=== PATIENT | female | born 1990 | race Caucasian/White ===

== ENCOUNTER 2016-10-10 14:57 | Emergency (ER) | payer OTHER ==
[~2016-10-10] VITALS: Ht 167.6 cm; Wt 78.9 kg
[2016-10-10 15:00] VITALS: Ht 167.6 cm; Wt 78.9 kg
[2016-10-10 15:48] LABS: BASO % 0.5 %; BASO ABS # 0.03 K/uL (0-0.2); COMPLETE YES; EOS % 3.6 %; HEMATOCRIT 42.5 % (37-47); IG% 0.2 %; LYMPH % 30.9 %; LYMPH ABS # 1.91 K/uL (1.2-3.4); MEAN CELL VOLUME 89.3 fL (80-100); MEAN CORPUSCULAR HEMOGLOBIN 31.3 pg (25-34); MEAN CORPUSCULAR HGB CONC 35.1 g/dl (32-36); MONO % 7.3 %; NEUT % 57.5 %; PLATELET COUNT 190 K/uL (130-400); RED BLOOD COUNT 4.76 M/uL (4.2-5.4); WHITE BLOOD COUNT 6.18 K/uL (4.8-10.8)
[2016-10-10 16:05] LABS: BUN/CREATININE RATIO 9.4 (10-20); CALCIUM 8.7 mg/dl (8.5-10.1); CREATININE 0.77 mg/dl (0.60-1.20); POTASSIUM 3.8 mmol/L (3.5-5.1)
[2016-10-10 16:16] LABS: ALB/GLOB RATIO 1.1 (0.9-2); THYROID STIMULATING HORMONE 2.22 uIu/ml (0.300-4.500)
--- NOTE | 2016-10-10 17:10 | EMERGENCY ROOM VISIT NOTE ---
History First contact with patient: 15:04 Chief Complaint: THROAT PAIN/INJURY Stated Complaint: FEELS LIKE SOMETHING IS STUCK IN THROAT History of Present Illness The patient is a 26 year old female who presents to the Emergency Room with complaints of a sensation of something stuck in her throat. The patient reports that for the past 2 months, she feels like there is something stuck in her throat. She states that she feels it when she is swallowing, talking and at rest. She states it feels like a pressure sensation in her throat. She reports that initially, the sensation would go away occasionally when she cracked her neck, but this no longer works. The symptoms are constant and has worsened over the past week. She is able to breathe and swallow without difficulty. The patient does report she has occasional heartburn and also notices some postnasal drip at times. She denies any fevers, neck swelling, nausea, vomiting or abdominal pain. Review of Systems A complete 10-point Review of Systems was discussed with the patient, with pertinent positives and negatives listed in the History of Present Illness. All remaining Review of Systems questions can be considered negative unless otherwise specified. Past Medical/Surgical History Medical Problems: (1) Normal labor (2) Urinary Frequency Family History FH: cancer Social History Smoking Status: Current Some Day Smoker Housing Status: lives with family Current/Historical Medications No Active Prescriptions or Reported Meds Allergies Coded Allergies: No Known Allergies (Unverified , 01/19/15) Physical Exam Vital Signs Date Time Temp Pulse Resp B/P Pulse Ox O2 Delivery O2 Flow Rate FiO2 10/10/16 17:18 36.2 87 20 117/71 99 10/10/16 15:00 36.2 87 20 117/71 99 Room Air Physical Exam VITALS: Vitals are noted on the nurse's note and reviewed by myself. Vital signs stable. GENERAL: This is a 26-year-old female, in no acute distress, nondiaphoretic, well-developed well-nourished. SKIN: The skin was without rashes. HEAD: Normocephalic atraumatic. EARS: External auditory canals clear, tympanic membranes pearly sanders without erythema or effusion bilaterally. EYES: Pupils equal round and reactive to light and accommodation. MOUTH: Mucous membranes moist. Tonsils are not enlarged. Pharynx without erythema or exudate. Uvula midline. Airway patent. NECK: Supple without nuchal rigidity. No lymphadenopathy. No swelling of the neck. HEART: Regular rate and rhythm without murmurs gallops or rubs. LUNGS: Clear to auscultation bilaterally without wheezes, rales or rhonchi. NEURO: Patient was alert and oriented to person place and time. Medical Decision & Procedures Laboratory Results 10/10/16 15:40 Red Blood Count 4.76, Mean Corpuscular Volume 89.3, Mean Corpuscular Hemoglobin 31.3, Mean Corpuscular Hemoglobin Concent 35.1, Mean Platelet Volume 10.0, Neutrophils (%) (Auto) 57.5, Lymphocytes (%) (Auto) 30.9, Monocytes (%) (Auto) 7.3, Eosinophils (%) (Auto) 3.6, Basophils (%) (Auto) 0.5, Neutrophils # (Auto) 3.56, Lymphocytes # (Auto) 1.91, Monocytes # (Auto) 0.45, Eosinophils # (Auto) 0.22, Basophils # (Auto) 0.03 10/10/16 15:40 Test 10/10/16 15:40 White Blood Count 6.18 K/uL (4.8-10.8) Red Blood Count 4.76 M/uL (4.2-5.4) Hemoglobin 14.9 g/dL (12.0-16.0) Hematocrit 42.5 % (37-47) Mean Corpuscular Volume 89.3 fL (80-100) Mean Corpuscular Hemoglobin 31.3 pg (25-34) Mean Corpuscular Hemoglobin Concent 35.1 g/dl (32-36) Platelet Count 190 K/uL (130-400) Mean Platelet Volume 10.0 fL (7.4-10.4) Neutrophils (%) (Auto) 57.5 % Lymphocytes (%) (Auto) 30.9 % Monocytes (%) (Auto) 7.3 % Eosinophils (%) (Auto) 3.6 % Basophils (%) (Auto) 0.5 % Neutrophils # (Auto) 3.56 K/uL (1.4-6.5) Lymphocytes # (Auto) 1.91 K/uL (1.2-3.4) Monocytes # (Auto) 0.45 K/uL (0.11-0.59) Eosinophils # (Auto) 0.22 K/uL (0-0.5) Basophils # (Auto) 0.03 K/uL (0-0.2) RDW Standard Deviation 38.7 fL (36.4-46.3) RDW Coefficient of Variation 12.0 % (11.5-14.5) Immature Granulocyte % (Auto) 0.2 % Immature Granulocyte # (Auto) 0.01 K/uL (0.00-0.02) Anion Gap 9.0 mmol/L (3-11) Est Creatinine Clear Calc Drug Dose 116.3 ml/min Estimated GFR () 122.6 Estimated GFR (Non- 105.8 BUN/Creatinine Ratio 9.4 (10-20) Calcium Level 8.7 mg/dl (8.5-10.1) Total Bilirubin 1.1 mg/dl (0.2-1) Aspartate Amino Transf (AST/SGOT) 12 U/L (15-37) Alanine Aminotransferase (ALT/SGPT) 18 U/L (12-78) Alkaline Phosphatase 71 U/L (45-117) Total Protein 8.1 gm/dl (6.4-8.2) Albumin 4.2 gm/dl (3.4-5.0) Globulin 3.9 gm/dl (2.5-4.0) Albumin/Globulin Ratio 1.1 (0.9-2) Thyroid Stimulating Hormone (TSH) 2.220 uIu/ml (0.300-4.500) Free Thyroxine 1.02 ng/dl (0.80-1.60) Free Triiodothyronine 2.68 pg/ml (2.30-4.20) Medical Decision Differential diagnosis includes GERD, postnasal drip, anxiety, food bolus, among others. The patient was evaluated as above. Labs were drawn and IV access was obtained. Labs revealed no leukocytosis, anemia or concerning electrolyte abnormalities. Thyroid studies were obtained and were unremarkable. The patient has no significant findings on physical exam. I am unsure the cause of her symptoms. She does admit to occasional heartburn and postnasal drip. She was encouraged to take Prilosec. She was given information for ENT follow-up. She will return with worsening symptoms. The patient's case was reviewed with Dr. Bragg, ED attending physician, who agreed with my assessment and treatment plan. The patient verbalized understanding of my assessment and treatment plan and was discharged home in good condition. Impression Primary Impression: Globus sensation Departure Information Dispostion Home / Self-Care Condition GOOD Prescriptions No Active Prescriptions or Reported Meds Referrals No Doctor, Assigned (PCP) Nawaf Sepulveda M.D. Patient Instructions My [facility] Additional Instructions Labs and thyroid studies today were OK. You may start Prilosec [id number] for acid reflux. You may also take an antihistamine such as Claritin, Zyrtec or Rashmi daily for postnasal drip. Call Dr. Sepulveda's office to schedule a follow-up appointment for further evaluation and testing. Return to the emergency department with any worsening symptoms, difficulty breathing, or difficulty swallowing.
[2016-10-10 17:18] VITALS: BP 117/71; PULSE 87; TEMP 36.2; O2SAT 99
== END 2016-10-10 17:19 | disposition home or self-care (01) ==
LOC: C.EDB 14:58 → C.EDC 17:19
DX: R09.89 Other specified symptoms and signs involving the circulatory and respiratory systems (principal); F17.200 Nicotine dependence, unspecified, uncomplicated

== ENCOUNTER → 2016-11-25 | Outpatient (CLI) | payer OTHER ==
[2016-11-29 16:17] LABS: HERPES SIMPLEX AB IGG-1 < 0.90 INDEX (< 0.90); HERPES SIMPLEX AB IGG-2 4.03 INDEX (< 0.90)
[2016-11-30 12:19] LABS: HERPES SIMPLEX CULT SOURCE GENITAL-VULVA; HERPES SIMPLEX VIRUS CULT NOT ISOLATED (NOT ISOLATED)
== END | disposition home or self-care (01) ==
LOC: C.LAB1850 13:53
PROVIDERS: ATTEND Obstetrics & Gynecology
DX: N76.6 Ulceration of vulva (principal)

== ENCOUNTER → 2017-02-03 | Outpatient (CLI) | payer OTHER ==
[2017-02-03 19:16] LABS: URINE APPEARANCE TURBID (CLEAR); URINE BILIRUBIN NEG (NEG); URINE COLOR DK YELLOW; URINE EPITHELIAL CELL AUTO >30 /lpf (0-5); URINE NITRITE NEG (NEG); URINE PH 6.5 (4.5-7.5); URINE SPECIFIC GRAVITY 1.031 (1.000-1.030); UROBILINOGEN NEG (NEG)
[2017-02-03 19:21] LABS: MANUAL MICROSCOPIC REQUIRED? NO; REVIEW REQ? NO
== END | disposition home or self-care (01) ==
LOC: C.LABSPEC 16:48
PROVIDERS: ATTEND Obstetrics & Gynecology
DX: Z34.81 Encounter for supervision of other normal pregnancy, first trimester (principal)

== ENCOUNTER → 2017-02-14 | Outpatient (CLI) | payer OTHER ==
[2017-02-14 15:19] LABS: BASO % 0.2 %; BASO ABS # 0.02 K/uL (0-0.2); COMPLETE YES; EOS % 0.6 %; HEMATOCRIT 41.3 % (37-47); IG% 0.1 %; LYMPH % 20.6 %; LYMPH ABS # 1.76 K/uL (1.2-3.4); MEAN CORPUSCULAR HEMOGLOBIN 30.5 pg (25-34); MEAN CORPUSCULAR HGB CONC 33.2 g/dl (32-36); MEAN PLATELET VOLUME 10.1 fL (7.4-10.4); MONO % 6.6 %; NEUT % 71.9 %; PLATELET COUNT 222 K/uL (130-400); RED BLOOD COUNT 4.49 M/uL (4.2-5.4); WHITE BLOOD COUNT 8.53 K/uL (4.8-10.8)
[2017-02-16 14:19] LABS: CHLAMYDIA TRACH RNA*** NOT DETECTED (NOT DETECTED); GC (NEIS GONORRHOEAE)RNA** NOT DETECTED (NOT DETECTED)
== END | disposition home or self-care (01) ==
LOC: C.LAB1850 12:28
PROVIDERS: ATTEND Obstetrics & Gynecology
DX: Z34.81 Encounter for supervision of other normal pregnancy, first trimester (principal)

== ENCOUNTER → 2017-04-14 | Outpatient (CLI) | payer OTHER ==
[2017-04-14 18:12] LABS: GTGD 50 Grams
== END | disposition home or self-care (01) ==
LOC: C.LAB1850 16:04
PROVIDERS: ATTEND Obstetrics & Gynecology
DX: Z34.82 Encounter for supervision of other normal pregnancy, second trimester (principal); Z3A.00 Weeks of gestation of pregnancy not specified

== ENCOUNTER → 2017-06-30 | Outpatient (CLI) | payer OTHER ==
[2017-06-30 13:02] LABS: GTGD 50 Grams
[2017-06-30 13:07] LABS: HEMATOCRIT 36.3 % (37-47)
[2017-06-30 13:56] LABS: URINE APPEARANCE CLEAR (CLEAR); URINE BILIRUBIN NEG (NEG); URINE COLOR YELLOW; URINE NITRITE NEG (NEG); URINE PH 7.5 (4.5-7.5); URINE SPECIFIC GRAVITY 1.011 (1.000-1.030); UROBILINOGEN NEG (NEG)
[2017-06-30 14:25] LABS: MANUAL MICROSCOPIC REQUIRED? YES; REVIEW REQ? NO
[2017-06-30 14:43] LABS: URINE BACTERIA NEG (NEG); URINE RBC 0-4 /hpf (0-4); URINE WBC 0 /hpf (0-5)
== END | disposition home or self-care (01) ==
LOC: C.LAB1850 10:00
PROVIDERS: ATTEND Obstetrics & Gynecology
DX: Z34.82 Encounter for supervision of other normal pregnancy, second trimester (principal)

== ENCOUNTER → 2017-08-26 | Outpatient (CLI) | payer OTHER | END | disposition home or self-care (01) | LOC: C.LABSPEC 13:59 | PROVIDERS: ATTEND Obstetrics & Gynecology | DX: Z34.83 Encounter for supervision of other normal pregnancy, third trimester (principal); Z3A.00 Weeks of gestation of pregnancy not specified ==

== ENCOUNTER 2017-09-29 07:35 | Inpatient (IN) | payer OTHER ==
[~2017-09-29] VITALS: Ht 167.6 cm; Wt 101.8 kg
[2017-09-29] MEDS ORDERED: VALA500T39 PO (07:55)
[2017-09-29] MEDS ORDERED: PRENTAB26 PO (07:55)
[2017-09-29 07:57] VITALS: Ht 167.6 cm; Wt 101.8 kg
[2017-09-29] MEDS ORDERED: OXYTOCIN 30 UNITS/500ML NSS IV PRN ×2 (08:45→15:45)
[2017-09-29] MEDS ORDERED: LACTATED RINGER'S 1000ML 1,000 ML IV PRN (08:45)
[2017-09-29] MEDS ORDERED: LACTATED RINGER'S 1000ML 500 ML IV PRN ×2 (08:45→12:15)
[2017-09-29] MEDS: LACTATED RINGER'S 1000ML 1,000 ML IV SCH ×2 (09:15→11:53)
[2017-09-29 09:16] LABS: HEMATOCRIT 36.3 % (37-47); HEMOGLOBIN 12.4 g/dL (12.0-16.0); MEAN CELL VOLUME 91.7 fL (80-100); MEAN CORPUSCULAR HEMOGLOBIN 31.3 pg (25-34); MEAN CORPUSCULAR HGB CONC 34.2 g/dl (32-36); MEAN PLATELET VOLUME 10.2 fL (7.4-10.4); PLATELET COUNT 188 K/uL (130-400); RED CELL DISTRIBUTION WIDTH CV 13.8 % (11.5-14.5); RED CELL DISTRIBUTION WIDTH SD 45.7 fL (36.4-46.3); WHITE BLOOD COUNT 9.27 K/uL (4.8-10.8)
[2017-09-29] MEDS ORDERED: BUPIVACAINE 0.25% 30 ML VIAL ONE (10:56)
[2017-09-29] MEDS ORDERED: EpHEDrine SULFATE INJ 50 MG/ML AMP ONE (10:56)
[2017-09-29] MEDS ORDERED: FENTANYL 2MCG/ML ROPIV 1.25MG/ML 100ML BAG EPI ONE (10:57)
[2017-09-29] MEDS: FENTANYL CITRATE INJ 50 MCG/1 ML 2 ML VIAL ONE ×2 (11:52→12:16)
[2017-09-29] MEDS ORDERED: FENTANYL 2MCG/ML ROPIV 1.25MG/ML 100ML BAG EPI PRN (12:15)
[2017-09-29] MEDS ORDERED: ONDANSETRON INJ 2 MG/ML 2 ML VIAL IV PRN (12:15)
[2017-09-29] MEDS ORDERED: NALOXONE HCL INJ 1 MG in SODIUM CHLORIDE 0.9% 1000ML 1,000 ML IV PRN (12:15)
[2017-09-29] MEDS ORDERED: NALOXONE HCL INJ 0.4 MG/1 ML VIAL/CARP IV PRN (12:15)
[2017-09-29] MEDS ORDERED: PROMETHAZINE HCL INJ 6.25 MG in SODIUM CHLORIDE 0.9% 50ML 50 ML IV PRN (12:15)
[2017-09-29] MEDS ORDERED: DiphenhydrAMINE HCL 50 MG/ML VIAL IV PRN (12:15)
[2017-09-29] MEDS ORDERED: NALBUPHINE HCL INJ 10 MG/ML AMP IV PRN (12:15)
[2017-09-29] MEDS ORDERED: EpHEDrine SULFATE INJ 50 MG/ML AMP IV PRN (12:15)
[2017-09-29] MEDS ORDERED: OXYCODONE/ACETAMINOPHEN 5-325 TAB PO PRN (15:45)
[2017-09-29] MEDS ORDERED: DIPHTHERIA/TETANUS/PERTUSSIS 0.5 ML SYR/VIAL IM. ONE (15:45)
[2017-09-29] MEDS ORDERED: BENZOCAINE 20% AER SPR 82.5 GM CAN EXT PRN (15:45)
[2017-09-29] MEDS ORDERED: SUPERCREAM 0.870 % 15GM JAR EXT PRN (15:45)
[2017-09-29] MEDS ORDERED: LANOLIN OINT EXT PRN (15:45)
[2017-09-29] MEDS ORDERED: HYDROCORTISONE ACETATE 25 MG SUPP PR PRN (15:45)
[2017-09-29] MEDS ORDERED: ACETAMINOPHEN 325 MG TAB PO PRN (15:45)
--- NOTE | 2017-09-29 16:10 | DELIVERY SUMMARY ---
DATE OF OPERATION: 09/29/2017 The patient dilated to complete and pushed to deliver a viable female infant, Apgars 8 and 9 via over intact perineum. Nose and mouth were bulb suctioned at the perineum. A loose nuchal cord x1 reduced. Shoulders and body were delivered with ease and the infant was vigorous and crying at . Cord was clamped at 30 seconds of life. Infant to maternal abdomen and cord doubly clamped and then cut. Placenta delivered spontaneously and intact, 3-vessel cord. Hemostasis achieved with dilute Pitocin and uterine massage. Cervix and sulci intact. EBL 300 mL. Mother and baby stable in recovery. I attest to the content of the Intraoperative Record and any orders documented therein. Any exception s are noted below.
--- NOTE | 2017-09-29 16:14 | Anesthesia Procedure Note ---
Anesthesia Epidural Removal Nt Date & Time Sep 29, 2017 at 16:14 Vital Signs Pain Intensity: 0.0 Notes Mental Status: alert / awake / arousable, participated in evaluation Nausea / Vomiting: adequately controlled Pain: adequately controlled Airway Patency, RR, SpO2: stable & adequate BP & HR: stable & adequate Hydration State: stable & adequate Neuraxial Anesthesia: was administered Anesthetic Complications: no major complications apparent, pt satisfied with anesthetic care Epidural: removed without complications, with tip intact
[2017-09-29 18:40] VITALS: BP 113/75; PULSE 89; TEMP 36.7
[2017-09-29 19:40] VITALS: BP 115/76; PULSE 86; TEMP 36.7; O2SAT 99
[2017-09-29] MEDS: DOCUSATE SODIUM 100 MG CAP PO SCH (19:56)
[2017-09-29] MEDS: IBUPROFEN 600 MG TAB PO PRN (19:56)
[2017-09-29 23:30] VITALS: BP 112/74; PULSE 65; TEMP 36.8; O2SAT 97; O2SAT 99
[2017-09-30] MEDS: IBUPROFEN 600 MG TAB PO PRN ×2 (03:37→15:45)
[2017-09-30 04:15] VITALS: BP 118/78; PULSE 70; TEMP 36.8; O2SAT 99
--- NOTE | 2017-09-30 06:34 | Progress Note ---
Subjective Sep 30, 2017. Subjective conversation w/ patient, physical exam Ambulation: ambulating normally Voiding: no voiding problems Passing Gas: Yes Diet Tolerance: Regular Diet Lochia: Moderate Feeding Type: Breast Feeding Pain: minimal, well controlled Comment: pt seen and assessed at bedside; no acute events overnight Review of Systems Constitutional: No fever, No chills Respiratory: No cough, No shortness of breath Abdomen: No nausea, No vomiting no headaches or calf pain Objective Vital Signs Date Time Temp Pulse Resp B/P (MAP) Pulse Ox O2 Delivery O2 Flow Rate FiO2 09/30/17 04:15 36.8 70 16 118/78 (91) 99 Room Air 09/29/17 23:30 36.8 65 18 112/74 (87) 97 Room Air 09/29/17 23:30 99 Room Air 09/29/17 19:40 36.7 86 18 115/76 (89) 99 Room Air 09/29/17 18:40 36.7 89 18 113/75 (88) Physical Exam General Appearance: WELL-APPEARING, WD/WN, NO APPARENT DISTRESS Respiratory/Chest: chest non-tender, lungs clear, normal breath sounds Cardiovascular: regular rate, rhythm, no murmur Abdomen: normal bowel sounds, non tender, soft Fundus: Firm, Non-Tender, Relation to Umbilicus (3-4 below) Extremities: normal range of motion, non-tender, normal inspection, no pedal edema, no calf tenderness Laboratory Results Last 24 Hours Test 09/29/17 09:01 White Blood Count 9.27 K/uL Red Blood Count 3.96 M/uL Hemoglobin 12.4 g/dL Hematocrit 36.3 % Mean Corpuscular Volume 91.7 fL Mean Corpuscular Hemoglobin 31.3 pg Mean Corpuscular Hemoglobin Concent 34.2 g/dl RDW Standard Deviation 45.7 fL RDW Coefficient of Variation 13.8 % Platelet Count 188 K/uL Mean Platelet Volume 10.2 fL Medications Current Inpatient Medications Medications (Trade) Dose Ordered Sig/Rodo Route Start Time Stop Time Status Last Admin Dose Admin Oxytocin (Pitocin IV) 30 units UD PRN IV 09/29/17 15:45 10/29/17 15:44 Benzocaine (Dermoplast Aero Spr) 1 appln PRN PRN EXT 09/29/17 15:45 10/29/17 15:44 Cocaine HCl (Supercream 0.870% Cr) BID PRN EXT 09/29/17 15:45 10/13/17 15:44 Hydrocortisone Acetate (Anusol Hc Supp) 25 mg BID PRN PA 09/29/17 15:45 10/29/17 15:44 Lanolin (Lanolin Oint) PRN PRN EXT 09/29/17 15:45 10/29/17 15:44 Ibuprofen (Motrin Tab) 600 mg Q4H PRN PO 09/29/17 15:45 10/29/17 15:44 09/30/17 03:37 600 MG Acetaminophen (Tylenol Tab) 650 mg Q6H PRN PO 09/29/17 15:45 10/29/17 15:44 Oxycodone/ Acetaminophen (Percocet 5-325mg Tab) 1 tab Q4H PRN PO 09/29/17 15:45 10/13/17 15:44 Docusate Sodium (coLACE CAP) 100 mg BID PO 09/29/17 20:00 10/29/17 19:59 09/29/17 19:56 100 MG Assessment and Plan Problem List Medical Problems: (1) Globus sensation Status: Acute Post- Day#: 1 Continue Routine Care: 27 yo F PPD 1 s/p Pt doing well clinically Continue routine care Encourage ambulation, encourage breast feeding Pain control with rx prn Resident Physician Supervision Note: I interviewed and examined the patient. Discussed with Dr. Cavanaugh and agree with findings and plan as documented in the note. Any exceptions or clarifications are listed here: pt seen and separate note written. Documented By: Doris Torres Resident Tracking Resident Involvement: Resident Care Provided Care Provided: OB Delivery
--- NOTE | 2017-09-30 06:48 | Discharge Instructions ---
Discharge Instructions Date of Service Sep 30, 2017. Admission Reason for Admission: Induction Discharge Discharge Diagnosis / Problem: s/p Discharge Goals Goal(s): Routine recovery after delivery Medications Continue Dispensed Medications: supercream, dermaplast, tucks, lansinoh Activity Recommendations Activity Limitations: per Instructions/Follow-up section . Instructions / Follow-Up Instructions / Follow-Up ACTIVITY RECOMMENDATIONS: * Gradual return to full activity over the next 2-3 weeks. * No lifting - nothing heavier than baby over the next 2-3 weeks. * Do not engage in vigorous exercise, sexual activity or sports until cleared by your physician. * Do not drive or operate any motorized equipment until cleared by your physician. * You may shower/bathe daily. MEDICATIONS: For discomfort or pain, you may use Acetaminophen (Tylenol), Ibuprofen (Advil), or Naproxen (Aleve) following the package directions. For constipation you may use Colace following the package directions. BREAST CARE: If you are not breast feeding: * Wear a supportive bra 24 hours a day for one to two weeks. * Avoid stimulating your breasts and nipples as much as possible during the first few weeks after delivery. * When taking a shower, have the warm water hit your back, not breasts. * When your breasts feel full, apply ice packs. Usually three to four times a day helps ease the discomfort. * Take a mild pain medication (Tylenol / Motrin) when you are uncomfortable. If breast feeding: * Use breast milk to lubricate nipples. Lansinoh cream may be used for sore nipples. You do not need to remove cream prior to breast feeding. If using a different brand of cream, check the label for directions regarding removal of cream prior to nursing. * Wear a supportive bra. * If having problems with breasts or breast feeding, call a benefits sales consultant or your health care provider. EPISIOTOMY CARE: After delivery, if you have an episiotomy (stitches), the following steps will ease discomfort and aid healing. * For the first 24 hours after delivery, place ice packs next to your episiotomy to help reduce swelling. * After the first 24 hour-period, sitz baths, either portable or in the tub, are suggested. A shower with a shower arm sprayed over the episiotomy may be comforting. * Sona care should be done after each voiding and bowel movement. Squirt warm water from a plastic bottle over the perineum (region of the body between the anus and urinary opening) and pat dry. * Use Dermoplast to ease discomfort. Shake container. Anderson directly over the episiotomy. Place a Tucks on a clean sanitary pad next to your episiotomy. SPECIAL CARE INSTRUCTIONS: When you are discharged from the hospital, it is important for you to follow the instructions listed below: * During the first week at home, you should be able to care for yourself and your baby. In addition, the usual light household activities are encouraged. * Limit your activities to the way you feel. Do not try to clean the house or move furniture. Be sensible. * If you actively engage in sports and have done so up until the time of your delivery, you may resume these activities as soon as you feel able. This may take up to one month or even longer. Use good judgment. * Continue to take your vitamins for at least six weeks after the of your baby. * Your diet need not be limited unless you were on a special diet before your delivery. Breast-feeding mothers need around 2500 calories per day and at least 64-80 ounces of fluid per day (8 to 10 glasses). * You should eat foods from the four major food groups. Crash diets or fad diets are to be avoided. Eating lean meats, fresh fruits and vegetables, low-fat dairy products, high fiber foods and a regular exercise program, will help you get back to your pre- weight without putting your health at risk. * Constipation is sometimes a problem after delivery. Take a mild laxative as needed. If breast feeding, Milk of Magnesia is acceptable to use. You may use a suppository or Fleets enema if no episiotomy. * A daily shower or tub bath is suggested. Be sure to thoroughly and gently dry the perineum. * A bloody vaginal discharge will usually continue until around four weeks post . A small amount of bleeding may continue for as long as six weeks. Vaginal discharge changes from the bright red bleeding after delivery to pink then brownish and finally yellowish-pink before becoming white and disappearing. * Bleeding may increase with activity. Your first period may come in 4-8 weeks. If you are breast feeding, your period may be delayed even longer. * [place] (sex) can begin whenever both you and your partner feel comfortable and do not have any form of genital infection. It is recommended that you wait at least six weeks for internal and external healing to occur. If you have questions, please talk to your health care practitioner. A condom should be used to prevent infection and . * Foreplay, gentle intercourse and lubrication is very important the first several times to prevent pain. A water-based lubricant such as K-Y jelly or Astroglide may be used. * If you have RH negative blood and your baby is RH positive, you will receive RHOGAM by injection prior to discharge. The nurse will give you a card to keep with you that has the date and place that you received RHOGAM after delivery. * During your care, you had a Rubella screen done to check for the presence of rubella antibodies in your blood. If your test was negative, you will receive a Rubella vaccine prior to discharge. This vaccine may cause a fever, soreness at the injection site and flu-like symptoms. If these symptoms persist, notify your health care practitioner. is not advised for one month after a Rubella vaccine. * Verbalizes understanding of car seat law as reviewed with patient nursing. * Car Seat hand-out given and reviewed with patient by nursing. * Shaken baby information reviewed with patient by nursing. Call you doctor if: * Heavy bleeding (saturating several pads an hour) or passing clots the size of your fist. * A fever >101 degrees F (38.3 degrees C) on two occasions four hours apart and /or chills. * Unusual pain in the pelvic or vaginal areas. * "Baby Blues" lasting longer than two weeks. If you have any questions or concerns, call your health care practitioner at . FOLLOW UP VISIT: * Please call the office at to schedule a 6 week examination. It is important you keep this appointment. It is important for you to make arrangements for either yearly or twice yearly check-ups thereafter. Current Hospital Diet Patient's current hospital diet: Regular OB Diet Discharge Diet Recommended Diet: Regular OB Diet Pending Studies Studies pending at discharge: no Medical Emergencies . Who to Call and When: Medical Emergencies: If at any time you feel your situation is an emergency, please call [phone] immediately. . Non-Emergent Contact Non-Emergency issues call your: Finish Production Manager . . "Provider Documentation" section prepared by Helen Cavanaugh. .
[2017-09-30] MEDS: DOCUSATE SODIUM 100 MG CAP PO SCH ×2 (08:14→21:14)
--- NOTE | 2017-09-30 08:17 | Progress Note ---
Subjective Sep 30, 2017. Subjective conversation w/ patient, physical exam Ambulation: ambulating normally Voiding: no voiding problems Diet Tolerance: Regular Diet Lochia: Small Feeding Type: Breast Feeding Pain: no pain issues. Objective Vital Signs Date Time Temp Pulse Resp B/P (MAP) Pulse Ox O2 Delivery O2 Flow Rate FiO2 09/30/17 04:15 36.8 70 16 118/78 (91) 99 Room Air 09/29/17 23:30 36.8 65 18 112/74 (87) 97 Room Air 09/29/17 23:30 99 Room Air 09/29/17 19:40 36.7 86 18 115/76 (89) 99 Room Air 09/29/17 18:40 36.7 89 18 113/75 (88) Physical Exam General Appearance: WELL-APPEARING, WD/WN, NO APPARENT DISTRESS Respiratory/Chest: lungs clear Cardiovascular: regular rate, rhythm Abdomen: non tender, soft Fundus: Firm, Relation to Umbilicus (2 down) Extremities: non-tender Laboratory Results Last 24 Hours Test 09/29/17 09:01 White Blood Count 9.27 K/uL Red Blood Count 3.96 M/uL Hemoglobin 12.4 g/dL Hematocrit 36.3 % Mean Corpuscular Volume 91.7 fL Mean Corpuscular Hemoglobin 31.3 pg Mean Corpuscular Hemoglobin Concent 34.2 g/dl RDW Standard Deviation 45.7 fL RDW Coefficient of Variation 13.8 % Platelet Count 188 K/uL Mean Platelet Volume 10.2 fL Assessment and Plan Problem List Medical Problems: (1) Globus sensation Status: Acute Post- Day#: 1 Continue Routine Care: stable, routine care. wants to go home later. instructions reviewed. 6 wks pp reviewed. getting rhogam.
[2017-09-30 08:24] VITALS: BP 107/70; PULSE 68; TEMP 36.5; O2SAT 98
[2017-09-30 08:30] VITALS: O2SAT 98
[2017-09-30 12:30] VITALS: BP 111/73; PULSE 77; TEMP 36.6; O2SAT 98
[2017-09-30 16:29] VITALS: BP 106/73; PULSE 74; TEMP 36.8; O2SAT 98
[2017-09-30 16:32] VITALS: O2SAT 98
[2017-10-01 00:15] VITALS: BP 104/67; PULSE 70; TEMP 36.7
--- NOTE | 2017-10-01 06:43 | Progress Note ---
Subjective Oct 01, 2017. Subjective conversation w/ patient, physical exam Ambulation: ambulating normally Voiding: no voiding problems Passing Gas: Yes Diet Tolerance: Regular Diet Lochia: Small Feeding Type: Breast Feeding Pain: well controlled, minmal Comment: seen and assessed at bedside; no acute events overnight Review of Systems Constitutional: No fever, No chills Respiratory: No cough, No shortness of breath Cardiac: No chest pain, No edema Abdomen: No nausea, No vomiting no headaches or calf pain Objective Vital Signs Date Time Temp Pulse Resp B/P (MAP) Pulse Ox O2 Delivery O2 Flow Rate FiO2 10/01/17 00:15 36.7 70 16 104/67 (79) Room Air 10/01/17 00:15 Room Air 09/30/17 16:32 98 Room Air 09/30/17 16:29 36.8 74 18 106/73 (84) 98 Room Air 09/30/17 12:30 36.6 77 18 111/73 (86) 98 Room Air 09/30/17 08:30 98 Room Air 09/30/17 08:24 36.5 68 20 107/70 (82) 98 Room Air Physical Exam General Appearance: WELL-APPEARING, WD/WN, NO APPARENT DISTRESS Respiratory/Chest: chest non-tender, lungs clear, normal breath sounds Cardiovascular: regular rate, rhythm, no edema, no murmur Abdomen: normal bowel sounds, non tender, soft Fundus: Firm, Non-Tender, Relation to Umbilicus (2-3 below) Extremities: normal range of motion, non-tender, normal inspection, no pedal edema, no calf tenderness Laboratory Results Last Resulted 09/29/17 09:01 Medications Current Inpatient Medications Medications (Trade) Dose Ordered Sig/Rodo Route Start Time Stop Time Status Last Admin Dose Admin Oxytocin (Pitocin IV) 30 units UD PRN IV 09/29/17 15:45 10/29/17 15:44 Benzocaine (Dermoplast Aero Spr) 1 appln PRN PRN EXT 09/29/17 15:45 10/29/17 15:44 Cocaine HCl (Supercream 0.870% Cr) BID PRN EXT 09/29/17 15:45 10/13/17 15:44 09/30/17 18:23 15 GM Hydrocortisone Acetate (Anusol Hc Supp) 25 mg BID PRN [place] 09/29/17 15:45 10/29/17 15:44 Lanolin (Lanolin Oint) PRN PRN EXT 09/29/17 15:45 10/29/17 15:44 Ibuprofen (Motrin Tab) 600 mg Q4H PRN PO 09/29/17 15:45 10/29/17 15:44 09/30/17 15:45 600 MG Acetaminophen (Tylenol Tab) 650 mg Q6H PRN PO 09/29/17 15:45 10/29/17 15:44 Oxycodone/ Acetaminophen (Percocet 5-325mg Tab) 1 tab Q4H PRN PO 09/29/17 15:45 10/13/17 15:44 Docusate Sodium (coLACE CAP) 100 mg BID PO 09/29/17 20:00 10/29/17 19:59 09/30/17 21:14 100 MG Assessment and Plan Problem List Medical Problems: (1) Globus sensation Status: Acute Post- Day#: 2 Continue Routine Care: 27 yo F PPD 2 s/p Doing well Continue routine care, encourage ambulation and breast feeding. Home today assuming baby can go Getting rhogam Resident Physician Supervision Note: I was present with Dr. Cavanaugh during the history and exam. I discussed the case with the resident and agree with the findings and plan as documented in the note. Any exceptions or clarifications are listed here: PPD#2 doing well. Discussed discharge today. Baby's discharge timing is unclear due to jaundice - patient may plan to room-in. Documented By: Renee Whitmore Resident Tracking Resident Involvement: Resident Care Provided Care Provided: OB Delivery
[2017-10-01 08:15] VITALS: BP 115/78; PULSE 73; TEMP 36.7
[2017-10-01] MEDS: DOCUSATE SODIUM 100 MG CAP PO SCH (08:18)
[2017-10-01 11:45] VITALS: BP_DIAS 78; PULSE 73; TEMP 36.7
== END 2017-10-01 11:50 | disposition home or self-care (01) | DRG 774 ==
LOC: C.LD 07:35 → C.OBG 18:34
PROVIDERS: ADMIT Obstetrics & Gynecology; ATTEND Obstetrics & Gynecology
PROC: 10E0XZZ Delivery of Products of Conception, External Approach (ICD-10-PCS; principal; 2017-09-29)
PROC: 3E033VJ Introduction of Other Hormone into Peripheral Vein, Percutaneous Approach (ICD-10-PCS; principal; 2017-09-29)
PROC: 10903ZC Drainage of Amniotic Fluid, Therapeutic from Products of Conception, Percutaneous Approach (ICD-10-PCS; principal; 2017-09-29)
DX: O48.0 Post-term pregnancy (principal); O98.52 Other viral diseases complicating childbirth; O36.0930 Maternal care for other rhesus isoimmunization, third trimester, not applicable or unspecified; B00.9 Herpesviral infection, unspecified; O69.81X0 Labor and delivery complicated by cord around neck, without compression, not applicable or unspecified; Z79.899 Other long term (current) drug therapy; Z3A.41 41 weeks gestation of pregnancy; Z37.0 Single live birth

== ENCOUNTER → 2017-11-15 | Outpatient (CLI) | payer OTHER ==
[~2017-11-15] MED LIST: PRENTAB26 PO
== END | disposition home or self-care (01) ==
LOC: C.PAPS 11:27
PROVIDERS: ATTEND Obstetrics & Gynecology
DX: Z12.4 Encounter for screening for malignant neoplasm of cervix (principal)

== ENCOUNTER 2019-10-18 07:38 | Inpatient (IN) ==
[2019-10-18] MEDS ORDERED: OXYTOCIN 30 UNITS/500 ML BAG IV PRN (08:01)
[2019-10-18 08:40] LABS: Hematocrit (blood only) 34.8 % (37-47); Hemoglobin 11.9 g/dL (12.0-16.0); Mean Corpuscular Hemoglobin 32.3 pg (25-34); Mean Corpuscular Volume 94.6 fL (80-100); Mean Platelet Volume 10.1 fL (7.4-10.4); Platelet Count 232 K/uL (130-400); RDW Coefficient of Variation 14.2 % (11.5-14.5); Red Blood Count 3.68 M/uL (4.2-5.4); White Blood Count 11.11 K/uL (4.8-10.8)
[2019-10-18 08:45] LABS: Mean Corpuscular Hgb Conc 34.2 g/dL (32-36)
[2019-10-18] MEDS: LACTATED RINGER'S 1,000 ML IV PRN ×4 (09:17→17:05)
--- NOTE | 2019-10-18 09:35 | History & Physical Report ---
Date of Service October 18, 2019 Assessment & Plan (1) Encounter for supervision of normal in multigravida, antepartum: (2) Post-dates : (3) Encounter for induction of labor: admit, iv, labs. plan pitocin, once with pattern will plan epidural and then arom. pt agreeable. categ 1. History of Present Illness Chief Complaint: planned postdate induction Primary Care Provider: NO PCP 29yo at 40+ wks egfercho presents to L&D with above cc. No omplaints. No rom or vb. +FM. We had to change her induction from tomorrow to today due to scheduling conflicts and she is agreeable. pnc c/b 1. postdates 2. rh neg, had rhogam pnl rh neg, rubella immune, gbs neg obh: x 3 gynh: no stds, normal pap smears pmh:neg psh: dental surgery Allergies Allergy/AdvReac Type Severity Reaction Status Date / Time No Known Allergies Allergy Verified 10/18/19 07:53 Home Medications Home Medications Medication Instructions Recorded Confirmed Type PNV cmb#95-ferrous fumarate-FA 1 tab PO DAILY 11/14/18 10/18/19 History [] valacyclovir 500 mg tablet 500 mg PO DAILY #30 tab 09/25/19 10/18/19 Rx Patient History Medical History (Updated 10/18/19 @ 09:47 by Doris Torres MD, FACOG) Amniotic fluid leaking (Inactive 06/09/14) Erythema migrans (Lyme disease) (Inactive) Genital herpes simplex (Inactive) Polycystic ovarian syndrome (Inactive) Urinary tract infection (Inactive) Varicella Social History Preferred Language: [place] Communication Ability: Effective Electroencephalograph Technologist Required: No Beliefs That Will Affect Care: None marital status: marital status details: Duc Knowles [phone] Current Living Situation: Spouse Current Living Situation Comment: Lives with and 3 children current occupational status: unemployed current occupation: homemaker Other Information That Helps Us Care for You: No Feels Safe at Home: Yes Safety Concerns: Feels Safe At This Time Smoking Status: Never smoker Second Hand Exposure: No ; Hx Alcohol Use: No Hx Substance Use: No Review of Systems as per Subjective / HPI Physical Exam Constitutional: WD/WN, vitals as above Respiratory: normal respiratory effort, lungs clear to auscultation Cardiovascular: Rate/Rhythm: regular rate and regular rhythm Gastrointestinal (Abdomen): soft gravid nt Musculoskeletal: no edema nontender calves Neurologic: grossly normal Psychiatric: A+Ox3, euthymic affect Genitourinary: Manual OB Exam: + cervical dilation (tight 2cm), + cervical effacement 50% and + station high OB Exam Monitor Tracing: + external FHT monitor used (130 mod variability, reactive), + external uterine monitor used (irreg), + category I and + normal FHT variability Results & Data Vital Signs (Past 12 Hours) Vital Signs Temp Pulse Resp BP 10/18/19 09:20 72 111/57 L 10/18/19 07:51 98.1 F 80 20 116/61 Code Status & VTE Plan VTE Prophylaxis Plan VTE Prophylaxis will be ordered: No Coding Level of Care Code None Diagnoses Encounter for supervision of normal in multigravida, antepartum Z34.80 Post-dates O48.0 Encounter for induction of labor Z34.90
[2019-10-18] MEDS ORDERED: fentaNYL citrate 100 MCG/2 ML VIAL ONE (12:18)
[2019-10-18] MEDS ORDERED: BUPIVACAINE 0.25% 30 ML VIAL ONE ×2 (12:18→20:29)
[2019-10-18] MEDS ORDERED: ePHEDrine sulfate 50 MG/ML AMP ONE (12:18)
[2019-10-18] MEDS ORDERED: fentaNYL 2MCG/ML ROPIV 1.25MG/ML 100 ML BAG EPI ONE (12:19)
[2019-10-18] MEDS ORDERED: ONDANSETRON INJ 2 MG/ML 2 ML VIAL IV PRN (12:35)
[2019-10-18] MEDS ORDERED: NALBUPHINE HCL INJ 10 MG/ML AMP IV PRN (12:35)
[2019-10-18] MEDS ORDERED: DiphenhydrAMINE HCL 50 MG/ML VIAL IV PRN (12:35)
[2019-10-18] MEDS ORDERED: fentaNYL 2MCG/ML ROPIV 1.25MG/ML 100 ML BAG EPI PRN (12:35)
[2019-10-18] MEDS ORDERED: NALOXONE HCL 0.4 MG/1 ML VIAL/CARP IV PRN (12:35)
[2019-10-18] MEDS ORDERED: NALOXONE HCL 1 MG in SODIUM CHLORIDE 0.9% 1000ML 1,000 ML IV PRN (12:35)
--- NOTE | 2019-10-18 12:39 | Anesthesiology Consultation ---
Date of Service October 18, 2019 Assessment & Plan (1) Encounter for pre-operative examination: Chart Review Chart Review: Patient NOT seen in Pre Admission Testing and Acceptable Risk for Labor Epidural Consults Requested none History Height/Weight Height: 5 ft 6 in Weight: 98.883 kg Allergies Allergy/AdvReac Type Severity Reaction Status Date / Time No Known Allergies Allergy Verified 10/18/19 07:53 Medications Home Medications Medication Instructions Recorded Confirmed Last Taken PNV cmb#95-ferrous fumarate-FA 1 tab PO DAILY 11/14/18 10/18/19 10/18/19 07:00 [] valacyclovir 500 mg tablet 500 mg PO DAILY #30 tab 09/25/19 10/18/19 10/17/19 10:00 Active Medications Generic Name Dose Route Start Last Admin Trade Name Freq PRN Reason Stop Dose Admin Lactated Ringer's 1,000 mls @ 125 mls/hr 10/18/19 08:01 10/18/19 12:16 Lr IV 10/20/19 08:00 999 mls/hr .Q8H PRN Infusion L&D Protocol Protocol Oxytocin 30 units in 500 mls @ 9 mls/hr 10/18/19 08:01 10/18/19 12:15 Pitocin IV 10/20/19 08:00 0.54 units/hr .Q24H PRN 9 mls/hr Labor Induction/Augmentation Titration Protocol 0.54 UNITS/HR Past Medical History Medical History Amniotic fluid leaking (Inactive 06/09/14) Erythema migrans (Lyme disease) (Inactive) Genital herpes simplex (Inactive) Polycystic ovarian syndrome (Inactive) Urinary tract infection (Inactive) Varicella Exercise / Class Metabolic Activity II 4-5 Yardwork/Stairs/Walk up hill Past Family History Family History Mother Cervical cancer Unknown Pure hypercholesterolemia Past Surgical History Surgical History S/P wisdom tooth extraction Past Anesthesia History No Hx of Anesthesia Complications and No Family Hx of Anesthesia Complications History of PONV No Hx of PONV and No Hx of Motion Sickness Social History Smoking Status: Never smoker Hx Alcohol Use: No Hx Substance Use: No substance use type: does not use Physical Exam Vital Signs Last Vital Signs Temp 36.9 C 10/18/19 11:00 Pulse 69 10/18/19 12:34 Resp 20 10/18/19 11:00 BP 122/67 10/18/19 12:00 Pulse Ox 100 10/18/19 12:34 Testing Laboratory Results 10/18/19 08:19
--- NOTE | 2019-10-18 14:24 | Labor Progress Brief Note ---
Date of Service October 18, 2019 Subjective Reason For Note: Routine Evaluation comfortable with epidural, thinks she feels pressure Assessment & Plan (1) Post-dates : (2) Encounter for induction of labor: will see how arom helps labor pattern. fhts categ 1. Physical Exam Constitutional: WD/WN, vitals as above Psychiatric: A+Ox3, euthymic affect Genitourinary: Manual OB Exam: + cervical dilation (tight 2), + cervical effacement 50%, + station -2 and + amniotic fluid (AROM) clear OB Exam Monitor Tracing: + external FHT monitor used (125 mod variability, reactive), + external uterine monitor used (q2-3), + category I and + normal FHT variability Results & Data Vital Signs (Past 12 Hours) Vital Signs Temp Pulse Resp BP Pulse Ox 10/18/19 14:19 73 97 10/18/19 14:18 72 107/61 10/18/19 14:14 75 97 10/18/19 14:09 75 98 10/18/19 14:04 71 99 10/18/19 14:03 76 10/18/19 14:00 20 10/18/19 13:59 74 98 10/18/19 13:56 82 103/58 L 10/18/19 13:54 82 98 10/18/19 13:51 77 105/56 L 10/18/19 13:49 76 99 10/18/19 13:46 75 105/56 L 10/18/19 13:44 78 98 10/18/19 13:42 76 107/59 L 10/18/19 13:39 79 98 10/18/19 13:36 81 111/67 10/18/19 13:34 79 99 10/18/19 13:30 86 20 109/64 10/18/19 13:29 87 100 10/18/19 13:28 169 H 111/67 10/18/19 13:26 83 107/64 10/18/19 13:24 80 108/65 100 10/18/19 13:22 78 108/64 10/18/19 13:20 74 104/62 10/18/19 13:19 85 115/65 100 10/18/19 13:16 89 119/71 10/18/19 13:15 18 10/18/19 13:14 80 117/70 99 10/18/19 13:13 74 118/69 10/18/19 13:10 63 83/49 L 10/18/19 13:09 71 100 10/18/19 13:08 75 96/54 L 10/18/19 13:06 79 99/54 L 10/18/19 13:04 79 102/59 L 99 10/18/19 13:02 83 110/59 L 10/18/19 13:00 85 18 117/64 10/18/19 12:59 84 99 10/18/19 12:58 81 119/65 10/18/19 12:57 98.8 F 10/18/19 12:56 76 20 123/71 10/18/19 12:55 74 135/80 10/18/19 12:54 72 100 10/18/19 12:52 77 117/58 L 10/18/19 12:49 82 99 10/18/19 12:44 88 130/68 100 10/18/19 12:39 81 100 10/18/19 12:34 69 100 10/18/19 12:29 67 100 10/18/19 12:00 71 122/67 10/18/19 11:00 98.4 F 76 20 117/68 10/18/19 09:58 64 20 149/57 H 10/18/19 09:20 72 111/57 L 10/18/19 07:51 98.1 F 80 20 116/61 Coding Level of Care Code None Diagnoses Post-dates O48.0 Encounter for induction of labor Z34.90
[2019-10-18] MEDS: ePHEDrine sulfate 50 MG/ML AMP IV PRN ×2 (14:36→15:12)
[2019-10-18] MEDS: OXYTOCIN 30 UNITS/500 ML BAG IV PRN ×2 (21:30→21:56)
--- NOTE | 2019-10-18 22:14 | Anesthesia Procedure Note ---
Date of Service October 18, 2019 Anesthesia Post Epidural Note Vital Signs Vital Signs: Temp Pulse Resp BP Pulse Ox 37.0 C 83 18 121/59 L 97 10/18/19 19:12 10/18/19 22:04 10/18/19 21:45 10/18/19 22:04 10/18/19 21:34 Pain Intensity Bilateral Abdomen: Pain Intensity: 3 Notes Mental Status: alert / awake / arousable and participated in evaluation Nausea / Vomiting: adequately controlled Pain: adequately controlled Airway Patency, RR, SpO2: stable & adequate BP & HR: stable & adequate Hydration State: stable & adequate Neuraxial Anesthesia: was administered and sensory block is resolving Anesthetic Complications: no major complications apparent and Pt Satisfied with anesthetic care Epidural: Removed without complications and With tip intact
[2019-10-18] MEDS ORDERED: OXYTOCIN 20 UNITS in LACTATED RINGER'S 1,000 ML IV SCH (22:15)
--- NOTE | 2019-10-18 22:17 | Delivery Summary ---
Vaginal Delivery Summary Date of Service October 18, 2019 The patient dilated to complete and pushed to deliver a viable female infant Apgars 8 and 9 via over intact perineum. Mouth and nose bulb suctioned at perineum. Shoulders and body delivered with ease with gentle downward pressure and maternal expulsive efforts. Infant was vigorous and crying at . Cord clamped at 30 seconds of life and to maternal abdomen where the cord was then doubly clamped and cut. Placenta delivered spontaneously and intact, three-vessel cord. Hemostasis achieved with dilute pitocin and uterine massage and drainage of the bladder for approximately 300 cc under sterile conditions. Cervix and sulci intact. EBL 300 cc. Mother and baby stable recovery. [facility] Vaginal Delivery Charge Vaginal Delivery Codes: 49058 global code for the antepartum, delivery, and post-
[2019-10-19] MEDS ORDERED: SUPERCREAM 0.870% 15 GM JAR EXT PRN (00:36)
[2019-10-19] MEDS ORDERED: DIPHTHERIA/TETANUS/PERTUSSIS 0.5 ML SYR/VIAL IM ONE (00:36)
[2019-10-19] MEDS ORDERED: HYDROCORTISONE ACETATE 25 MG SUPP PR PRN (00:36)
[2019-10-19] MEDS ORDERED: BENZOCAINE 20% AER SPR 82.5 GM CAN EXT PRN (00:36)
[2019-10-19] MEDS ORDERED: OXYTOCIN 30 UNITS/500 ML BAG IV PRN (00:36)
[2019-10-19] MEDS ORDERED: OXYCODONE/ACETAMINOPHEN 5mg/325mg TAB PO PRN (00:36)
[2019-10-19] MEDS ORDERED: LACTATED RINGER'S 1,000 ML IV SCH (00:45)
[2019-10-19] MEDS: IBUPROFEN 600 MG TAB PO PRN ×5 (01:03→20:02)
[2019-10-19] MEDS: ACETAMINOPHEN 325 MG TAB PO PRN ×2 (06:44→14:05)
--- NOTE | 2019-10-19 07:09 | Obstetrical Progress Note ---
Date of Service October 19, 2019 Assessment & Plan (1) Normal delivery at term: doing well stable, really wants to go home late today. instructions reviewed. f/u 6wks pp check. rh pos/ri/breast feeding going well. ok to go home after rhogam. Subjective Ambulation: ambulating normally Voiding: no voiding problems Passing Gas:: Yes Diet Tolerance:: regular diet Lochia:: Small Feeding Type:: breast feeding denies pain issues. feels well and wants to go home later today. rh neg and baby rh neg, will need rhogam. Physical Exam Constitutional WD/WN, vitals as above Respiratory normal respiratory effort, lungs clear to auscultation Cardiovascular Rate/Rhythm: regular rate and regular rhythm Gastrointestinal (Abdomen) Inspection/Auscultation: abdomen normal to inspection Percussion/Palpation: abdomen soft; abdomen nontender Fundus firm 2cm down Musculoskeletal nt calves no edema Neurologic grossly normal Psychiatric A+Ox3, euthymic affect Results & Data Vital Signs (Past 12 Hours) Vital Signs Temp Pulse Pulse Resp BP BP Pulse Ox 10/19/19 04:00 98.1 F 78 20 98/60 L 98 10/19/19 00:30 98.1 F 74 20 103/60 97 10/18/19 23:48 80 104/57 L 10/18/19 23:45 18 10/18/19 23:27 84 111/56 L 10/18/19 23:15 18 10/18/19 22:49 90 109/59 L 10/18/19 22:45 18 10/18/19 22:34 77 107/56 L 10/18/19 22:30 18 10/18/19 22:19 83 118/61 10/18/19 22:15 18 10/18/19 22:04 83 121/59 L 10/18/19 22:00 18 10/18/19 21:49 75 110/57 L 10/18/19 21:45 18 10/18/19 21:34 76 106/54 L 97 10/18/19 21:29 80 98 10/18/19 21:25 18 10/18/19 21:24 97 H 98 10/18/19 21:21 91 H 89 L 10/18/19 21:20 89 127/56 L 10/18/19 21:19 92 H 99 10/18/19 21:14 84 99 04/09/20 21:09 80 99 10/18/19 21:06 88 110/70 10/18/19 21:05 85 113/73 10/18/19 21:04 82 100 10/18/19 21:00 18 10/18/19 20:59 82 99 10/18/19 20:55 78 109/66 10/18/19 20:54 78 99 10/18/19 20:49 94 H 103/64 97 10/18/19 20:47 88 100/59 L 10/18/19 20:44 98 H 103/61 99 10/18/19 20:42 98 H 102/62 10/18/19 20:40 97 H 99/61 L 10/18/19 20:39 90 100/64 99 10/18/19 20:37 84 104/63 10/18/19 20:35 81 103/64 10/18/19 20:34 81 109/69 98 10/18/19 20:30 18 10/18/19 20:29 84 98 10/18/19 20:24 93 H 99 10/18/19 20:19 87 106/59 L 99 10/18/19 20:14 81 98 10/18/19 20:09 87 97 10/18/19 20:04 83 101/59 L 99 10/18/19 20:00 18 10/18/19 19:59 79 97 10/18/19 19:54 80 97 10/18/19 19:49 83 101/57 L 98 10/18/19 19:44 88 98 10/18/19 19:39 83 99 10/18/19 19:34 93 H 102/55 L 99 10/18/19 19:30 18 10/18/19 19:29 75 97 10/18/19 19:24 75 99 10/18/19 19:20 76 96/52 L 10/18/19 19:19 77 100 10/18/19 19:14 90 100 10/18/19 19:12 98.6 F 18 10/18/19 19:09 98.6 F 86 18 100
[2019-10-19] MEDS: DOCUSATE SODIUM 100 MG CAP PO SCH ×2 (08:12→20:58)
--- NOTE | 2019-10-20 08:12 | Obstetrical Progress Note ---
Date of Service October 20, 2019 Assessment & Plan (1) Normal delivery at term: PPD#2 doing well, DC home today. Instructions reviewed. Subjective Ambulation: ambulating normally Voiding: no voiding problems Diet Tolerance:: regular diet Lochia:: Moderate Feeding Type:: breast feeding PPD#2 doing well. Review of Systems All systems reviewed & are unremarkable except as noted in HPI & below Physical Exam Constitutional WD/WN, vitals as above no acute distress Respiratory normal respiratory effort Cardiovascular Rate/Rhythm: regular rate and regular rhythm Gastrointestinal (Abdomen) Inspection/Auscultation: abdomen normal to inspection; abdomen not distended Percussion/Palpation: abdomen soft Genitourinary OB Exam Abdomen: + fundal height Fundus: + firm; not tender Results & Data Vital Signs (Past 12 Hours) Vital Signs Temp Pulse Resp BP 10/20/19 00:00 36.8 C 66 18 123/81
[2019-10-20] MEDS: DOCUSATE SODIUM 100 MG CAP PO SCH (08:25)
== END 2019-10-20 09:10 | disposition home or self-care (01) | DRG 807 ==
LOC: 4S1 07:38 → 4S2 10-19 00:03